=== PATIENT | male | born 1990 | race African-American/Black ===

== ENCOUNTER 2023-04-12 11:48 | Emergency (ER) | payer SELFPAY ==
[2023-04-12] MEDS ORDERED: Lorazepam 0.5 MG TAB ONE (12:30)
[2023-04-12] MEDS ORDERED: Ibuprofen 200 MG TAB ONE (12:31)
== END 2023-04-12 12:42 | disposition home or self-care (01) ==
LOC: NAV ERS 11:48
DX: R51.9 Headache, unspecified (principal); F41.1 Generalized anxiety disorder; I10 Essential (primary) hypertension; I48.91 Unspecified atrial fibrillation; F17.210 Nicotine dependence, cigarettes, uncomplicated; Z79.899 Other long term (current) drug therapy
CPT/HCPCS: 99283